=== PATIENT | female | born 1995 | race Caucasian/White ===

== ENCOUNTER 2021-01-21 07:25 | Inpatient (IN) ==
[2021-01-21] MEDS ORDERED: OXYTOCIN 30 UNITS/500 ML BAG IV PRN ×2 (08:05)
[2021-01-21 08:30] LABS: Hematocrit (blood only) 35.9 % (37-47); Hemoglobin 12.3 g/dL (12.0-16.0); Mean Corpuscular Hemoglobin 29.4 pg (25-34); Mean Corpuscular Hgb Conc 34.3 g/dL (32-36); Mean Corpuscular Volume 85.7 fL (80-100); Mean Platelet Volume 11.1 fL (7.4-10.4); Platelet Count 171 K/uL (130-400); RDW Coefficient of Variation 14.8 % (11.5-14.5); RDW Standard Deviation 46.3 fL (36.4-46.3); Red Blood Count 4.19 M/uL (4.2-5.4); White Blood Count 10.53 K/uL (4.8-10.8)
--- NOTE | 2021-01-21 08:36 | History & Physical Report ---
Date of Service January 21, 2021 Assessment & Plan (1) Proteinuria affecting : -urine dipstick (2) Rh negative status during : -give rhogam post-delivery (3) Supervision of normal first : -admit to l&d for iol, arom/pit -NPO except for ice chips -FHTs -Labs -IV fluids, pitocin -discussed epidural but pt unsure at this time -Rh negative, RI, GBS- -COVID-19 negative (4) : Admission and Anticipated Discharge Date Admission Date: January 21, 2021 History of Present Illness Primary Care Provider: Edinson Curiel 25 y/o female currently at 40.2 WGA with an MITCH 01/17/21 as determined by LMP who is here for IOL. - contractions; + movement; - fluid loss; - bloody show. ROS + headache Had regular appointments with OB. Labs: (Today) Blood type: AB negative Antibody screen: negative H.3 Hct: 35.9 WBC: 10.53 Plt: 171 Rubella: immune VDRL/RPR: nonreactive Gonorrhea: negative Chlamydia: negative HIV: negative HbSAg: negative GBS: negative Other screens: CF: declined SMA: declined Allergies Allergy/AdvReac Type Severity Reaction Status Date / Time No Known Allergies Allergy Unknown NONE Verified 01/21/21 07:41 Home Medications Medication Instructions Recorded Confirmed Type acetaminophen [Tylenol] 650 mg PO Q6HWA PRN 06/02/20 01/21/21 History prenat.vits,estiven,uly-pdcg-liapi 1 tab PO DAILY 06/02/20 01/21/21 History mometasone TOPICAL 06/10/20 01/19/21 History diphenhydramine-zinc acetate 2 1 applic TOPICAL BID 01/21/21 01/21/21 History %-0.1 % topical solution ferrous sulfate 325 mg (65 mg 325 mg PO DAILY 01/21/21 01/21/21 History iron) tablet (iron) Patient History Medical History No pertinent past medical history Psoriasis Varicella vaccination Surgical History No history of previous surgery Family History Denies family history of Ovarian cancer Breast cancer Colorectal cancer Social History Smoking Status: Never smoker Hx Alcohol Use: No Hx Substance Use: No Preferred Language: Portuguese Beliefs That Will Affect Care: None marital status: Single marital status details: Delvis Burgos (24) [phone] Current Living Situation: Parent and Significant Other Current Living Situation Comment: lives with parents, fiance, dogs current occupational status: employed current occupation: [employer] Feels Safe at Home: Yes Safety Concerns: Feels Safe At This Time Assistive Devices: None Review of Systems All systems reviewed & are unremarkable except as noted in HPI & below and Other (headache) as per Subjective / HPI as per Subjective / HPI as per Subjective / HPI as per Subjective / HPI as per Subjective / HPI as per Subjective / HPI Physical Exam Physical Exam: General: Alert, oriented. No acute distress. Cardiac: Regular rate and rhythm, no murmurs/rubs/gallops. Respiratory: Clear to auscultation bilaterally a/p, no wheezes/rales/rhonchi. No increased work of breathing. Symmetrical chest rise. No respiratory distress. Pelvic: Dilation 3 cm; Effacement 75%; Station -[address] Willard Lower Extremities: No lower extremity edema or swelling. No deep calf pain. Kelli's negative bilaterally Baseline: 150 bpm Variability:minimal Accelerations: present Decelerations: none Respiratory: normal respiratory effort, lungs clear to auscultation Cardiovascular: RRR, no murmur, no edema Musculoskeletal: no cyanosis or clubbing, extremities motor strength 5/5 Genitourinary: Manual OB Exam: + cervical dilation 3 cm, + cervical effacement (75%) and + station -2 Results & Data ([facility]) Vital Signs (Past 12 Hours) Vital Signs Temp Pulse Resp BP 01/21/21 07:40 37.0 C 20 01/21/21 07:36 114 H 144/85 H Supervising Physician Co-Signing Physician Notes Patient admitted for IOL due to postdatism. She had mild HTN on admission and 1+ proteinuria on dip, so she meets criteria for mild preeclampsia. However labs were done and resulted with normal platelets, normal cr, normal transaminases. Patient had also not complained of any PIH symptoms to my knowledge. Based on that, her plan remained for IOL and no new changes were made. However, on reviewing the resident's note, I see "+ headache" in his HPI. I called to discuss with the patient's RN, who shared that she did overhear the patient tell our resident about a mild MCKEON she'd experienced earlier this morning, but she also recalled hearing the patient tell him it had already resolved. The nurse then went to the patient's room to ask again about symptoms and confirm that there are no *current* symptoms of PIH. The patient stated that she did actually have a current headache, but it was mild and had improved compared to this morning at home. The nurse then called me with this new information. Unfortunately a headache would be an indicator of severe preeclampsia - but I'm hesitant to put this patient on magnesium when she has normal labs, no other symptoms (and this one is improved, not worsening), reflexes currently 1+ per nurse / not brisk and actually hard to elicit, and I anticipate improvement in her BP and likely her MCKEON when we give an epidural soon and she gets pain relief. I also don't want to ignore this new information. Plan will therefore be to provide a dose of oral acetaminophen now and see if patient gets relief of remaining MCKEON, while continuing to monitor BP. If symptoms persist despite tylenol or BP worsens, will utilize mag. Resident Activity Tracking Resident Involvement: Resident Care Provided Care Provided: OB Delivery
[2021-01-21 08:48] LABS: Albumin Level 2.5 gm/dl (3.4-5.0); BUN Creatinine Ratio 18.4 (10-20); Calcium 9.2 mg/dl (8.5-10.1); Creatinine Clr Calc Pharmacy 165.4 ml/min; Est GFR (African American) 148.9 ml/min; Est GFR (Non-African American) 128.5 ml/min; Potassium 3.6 mmol/L (3.5-5.1)
[2021-01-21 08:51] LABS: Albumin Globulin Ratio 0.6 (0.9-2); Bilirubin,Total 0.2 mg/dl (0.2-1); Globulin 4.3 gm/dl (2.5-4.0); Total Protein 6.8 gm/dl (6.4-8.2)
[2021-01-21] MEDS ORDERED: CALCIUM CARBONATE 500 MG CHEWABLE TAB PO PRN (09:26)
[2021-01-21] MEDS: LACTATED RINGER'S 1,000 ML IV PRN ×3 (09:26→17:33)
[2021-01-21] MEDS ORDERED: CALCIUM CARBONATE 500 MG CHEWABLE TAB ONE (09:29)
[2021-01-21] MEDS ORDERED: ACETAMINOPHEN 325 MG TAB PO PRN (12:15)
--- NOTE | 2021-01-21 16:01 | Labor Progress Brief Note ---
Date of Service January 21, 2021 Subjective Reason For Note: Routine Evaluation Current Pain Level(1-10): 1 Patient with pit at 17 and "not feeling any contractions" still. Also told RN she has a headache again, but when I arrive in the room with RN, patient states that she "has a headache, or maybe actually doesn't, she can't tell." We explained the importance of her being clear with us about her symptoms given the different management of mild vs severe preeclampsia, and she decided that she "does have one but it's very mild." After discovery that cervix remains unchanged, offered IUPC, discussing risks (scratching baby, damaging placenta, increased infection risk) and benefits (better data about strength of contractions to allow use of higher pitocin doses as may be required to reach adequate labor). Patient and FOB consider and decide to accept IUPC. She gets up to void, at her request, between initial exam and IUPC placement. Assessment & Plan (1) Mild preeclampsia: (2) Post term over 40 weeks: Plan: Continue IOL. Pit @ 17 now, titrate to MVU 200-250. Epidural on request. Continue to monitor BP, MCKEON and DTR's on an ongoing basis. Admission and Anticipated Discharge Date Admission Date: January 21, 2021 Physical Exam Constitutional: WD/WN, vitals as above Eyes: PERRL, conjunctivae normal, anicteric sclerae ENMT: external ear and nose normal, oropharynx normal Neck: supple Respiratory: normal respiratory effort and able to speak in complete sentences; no respiratory distress Cardiovascular: Rate/Rhythm: regular rate and regular rhythm Gastrointestinal (Abdomen): Gravid / AGA, nontender Musculoskeletal: no cyanosis or clubbing, extremities motor strength 5/5 Skin: no rashes, warm and dry Neurologic: patellar DTR's 2+ bilat, sensation intact (Would describe as 1 to 2+, certainly not brisk.) Psychiatric: A+Ox3, euthymic affect Genitourinary: OB Exam Abdomen: + vertex, + estimated weight (7) and + regular contractions (Q3) Manual OB Exam: + cervical dilation 4 cm, + cervical effacement 90%, + station -2 and + amniotic fluid meconium OB Exam Monitor Tracing: + external FHT monitor used, + external uterine monitor used and + category I IUPC placed. First IUPC was unable to be placed as it was discovered that the catheter could not be slid forward; it was "stuck" in place inside the firm plastic guide sheath. A second catheter was obtained and introduced easily in an anterolateral location. Lymphatic: no cervical or axillary lymphadenopathy Results & Data ([facility]) Vital Signs (Past 12 Hours) Vital Signs Temp Pulse Resp BP 01/21/21 15:25 96 H 146/86 H 01/21/21 15:01 98 H 139/88 01/21/21 15:00 98.1 F 01/21/21 14:25 100 H 133/91 01/21/21 13:25 107 H 139/86 01/21/21 13:06 98.2 F 01/21/21 12:25 102 H 131/86 01/21/21 11:24 121 H 152/83 H 01/21/21 11:00 98.4 F 01/21/21 10:24 106 H 146/89 H 01/21/21 09:24 106 H 141/94 H 01/21/21 07:40 98.6 F 01/21/21 07:36 114 H 144/85 H Coding Level of Care Code None Diagnoses Mild preeclampsia O14.00 Post term over 40 weeks O48.0
[2021-01-21] MEDS ORDERED: SODIUM CHLORIDE 0.9% INJ 10 ML VIAL ONE ×2 (17:43→19:01)
[2021-01-21] MEDS ORDERED: fentaNYL citrate 100 MCG/2 ML VIAL ONE (17:43)
[2021-01-21] MEDS ORDERED: BUPIVACAINE 0.25% 30 ML VIAL ONE ×2 (17:43→19:01)
[2021-01-21] MEDS ORDERED: ePHEDrine sulfate 50 MG/ML AMP ONE (17:43)
[2021-01-21] MEDS ORDERED: fentaNYL 2MCG/ML ROPIVACAINE 1.25MG/ML 100 ML BAG EPI ONE (17:44)
--- NOTE | 2021-01-21 18:04 | Anesthesiology Consultation ---
Date of Service January 21, 2021 Assessment & Plan (1) Encounter for pre-operative examination: Chart Review Chart Review: Acceptable Risk for Surgery and Patient NOT seen in Pre Admission Testing Consults Requested none ASA ASA2 Proposed Anesthesia Anesthesia Type: Labor Epidural Risk / Benefits Reviewed With: PT / POA / Parent / Guardian, Accepts Plan and Informed Consent Obtained History Height/Weight Height: 5 ft 6 in Weight: 90.718 kg Allergies Allergy/AdvReac Type Severity Reaction Status Date / Time No Known Allergies Allergy Unknown NONE Verified 01/21/21 07:41 Medications Home Medications Medication Instructions Recorded Confirmed Last Taken acetaminophen [Tylenol] 650 mg PO Q6HWA PRN 06/02/20 01/21/21 Unknown prenat.vits,estiven,cxm-rosa-vmypb 1 tab PO DAILY 06/02/20 01/21/21 01/20/21 21:00 mometasone TOPICAL 06/10/20 01/19/21 Unknown diphenhydramine-zinc acetate 2 1 applic TOPICAL BID 01/21/21 01/21/21 01/21/21 05:00 %-0.1 % topical solution ferrous sulfate 325 mg (65 mg 325 mg PO DAILY 01/21/21 01/21/21 01/20/21 21:00 iron) tablet (iron) Active Medications Generic Name Dose Route Start Last Admin Trade Name Freq PRN Reason Stop Dose Admin Acetaminophen 650 mg 01/21/21 12:15 01/21/21 12:24 Acetaminophen 325 Mg Tab PO 02/20/21 12:14 650 mg Q4H PRN Administration Mild Pain Oxytocin 30 units in 500 mls @ 17 mls/hr 01/21/21 08:05 01/21/21 15:01 Pitocin IV 01/23/21 08:04 1.02 units/hr .Q24H PRN 17 mls/hr Labor Induction/Augmentation Titration Protocol 1.02 UNITS/HR Lactated Ringer's 1,000 mls @ 125 mls/hr 01/21/21 08:05 01/21/21 17:33 Lr IV 01/23/21 08:04 125 mls/hr .Q8H PRN Administration L&D Protocol Protocol NPO Date Last Intake of Fluids: 01/21/21 Time Last Intake of Fluids: 17:58 Date Last Intake of Solids: 07/14/21 Time Last Intake of Solids: 08:00 Past Medical History Medical History No pertinent past medical history Psoriasis Varicella vaccination Exercise / Class Metabolic Activity II 4-5 Yardwork/Stairs/Walk up hill Past Family History Family History Denies family history of Ovarian cancer Breast cancer Colorectal cancer Past Surgical History Surgical History No history of previous surgery Past Anesthesia History No Hx of Anesthesia Complications History of PONV No Hx of Motion Sickness Social History Smoking Status: Never smoker Hx Alcohol Use: No Hx Substance Use: No substance use type: does not use Review of Systems Negative for chest pain or shortness of breath, Patient denies active symptoms of GERD, Patient denies history of abnormal bleeding or bleeding disorder. Patient denies active use of anticoagulants other than low dose aspirin, Patient denies numbness, tingling or weakness in lower extremities. Physical Exam Vital Signs Last Vital Signs Temp 36.9 C 01/21/21 17:00 Pulse 107 H 01/21/21 17:55 Resp 18 01/21/21 15:00 BP 131/75 01/21/21 17:24 Pulse Ox 97 01/21/21 17:55 Constitutional not obese (gravid ) ENMT Mouth: no TMJ abnormality and oral opening not small Thyromental Distance: < 3.5 Finger Breadths Mallampati Class: II Neck normal visual inspection; neck extension not limited Respiratory normal respiratory effort Cardiovascular Rate/Rhythm: regular rate and regular rhythm Neurologic moves all extremities Motor/Sensory: no sensory deficit Psychiatric Orientation: alert and oriented x 3 Testing Laboratory Results 01/21/21 08:13 01/21/21 08:13
[2021-01-21] MEDS ORDERED: NALOXONE HCL 0.4 MG/1 ML VIAL/CARP IV PRN (19:54)
[2021-01-21] MEDS ORDERED: diphenhydrAMINE 50 MG/ML VIAL IV PRN (19:54)
[2021-01-21] MEDS ORDERED: NALOXONE HCL 1 MG in SODIUM CHLORIDE 0.9% 1000ML 1,000 ML IV PRN (19:54)
[2021-01-21] MEDS ORDERED: ePHEDrine sulfate 50 MG/ML AMP IV PRN (19:54)
[2021-01-21] MEDS ORDERED: fentaNYL 2MCG/ML ROPIVACAINE 1.25MG/ML 100 ML BAG EPI PRN (19:54)
[2021-01-21] MEDS ORDERED: NALBUPHINE HCL INJ 10 MG/ML AMP IV PRN (19:54)
--- NOTE | 2021-01-21 20:14 | Labor Progress Brief Note ---
Date of Service January 21, 2021 Subjective Comfortable after placement of epidural ultimately successful but did require a lengthy process with attempts by two anesthesiologists. Assessment & Plan (1) Post term over 40 weeks: (2) Mild preeclampsia: Plan: Continue titrating pitocin to MVU 200-250. BP ok, no c/o MCKEON currently. Admission and Anticipated Discharge Date Admission Date: January 21, 2021 Physical Exam Genitourinary: Pit @ 17 still MVU <200, ctx Q2-4 irregular Cvx /-1 FHT Cat 1 Results & Data ([facility]) Vital Signs (Past 12 Hours) Vital Signs Temp Pulse Resp BP Pulse Ox 01/21/21 20:11 115 H 01/21/21 20:06 129 H 100 01/21/21 20:05 122 H 124/72 01/21/21 20:03 126 H 118/75 01/21/21 20:01 130 H 113/70 100 01/21/21 19:59 134 H 104/64 01/21/21 19:57 125 H 103/59 L 01/21/21 19:56 129 H 100 01/21/21 19:55 125 H 127/71 01/21/21 19:53 129 H 105/64 01/21/21 19:51 123 H 104/55 L 01/21/21 19:50 126 H 98 01/21/21 19:49 134 H 103/57 L 01/21/21 19:47 130 H 128/60 01/21/21 19:45 132 H 125/61 99 01/21/21 19:43 130 H 127/73 01/21/21 19:41 126 H 134/69 01/21/21 19:40 126 H 97 01/21/21 19:39 114 H 136/87 01/21/21 19:37 108 H 137/95 01/21/21 19:35 97 H 97 01/21/21 19:30 113 H 97 01/21/21 19:25 105 H 134/92 97 01/21/21 19:20 109 H 100 01/21/21 19:15 102 H 96 01/21/21 19:10 108 H 100 01/21/21 19:05 97.7 F 116 H 18 95 01/21/21 19:00 113 H 95 01/21/21 18:55 96 H 96 01/21/21 18:50 83 97 01/21/21 18:45 97 H 97 01/21/21 18:40 106 H 97 01/21/21 18:35 114 H 96 01/21/21 18:30 111 H 97 01/21/21 18:26 114 H 134/90 01/21/21 18:25 113 H 98 01/21/21 18:20 111 H 97 01/21/21 18:15 115 H 97 01/21/21 18:10 113 H 97 01/21/21 18:05 115 H 97 01/21/21 18:00 111 H 97 01/21/21 17:55 107 H 97 01/21/21 17:50 105 H 97 01/21/21 17:45 97 H 97 01/21/21 17:40 115 H 97 01/21/21 17:24 100 H 131/75 01/21/21 17:00 98.4 F 01/21/21 16:24 100 H 135/92 01/21/21 15:25 96 H 146/86 H 01/21/21 15:01 98 H 139/88 01/21/21 15:00 98.1 F 18 01/21/21 14:25 100 H 133/91 01/21/21 13:25 107 H 139/86 01/21/21 13:06 98.2 F 18 01/21/21 12:25 102 H 131/86 01/21/21 11:24 121 H 152/83 H 01/21/21 11:00 98.4 F 18 01/21/21 10:24 106 H 146/89 H 01/21/21 09:24 106 H 141/94 H Coding Level of Care Code None Diagnoses Post term over 40 weeks O48.0 Mild preeclampsia O14.00
--- NOTE | 2021-01-21 22:59 | Procedure Note ---
Procedure Note Date of Service January 21, 2021 Note Received call at 1750 from OB requesting labor epidural placement. Patient was interviewed and examined. Anesthesia consent was discussed and signed. The patient was sitting for epidural placement and back was cleaned with DuraPrep. Time out was performed. Initial attempt was done at L3/L4 with easy location of SHE to saline, but catheter would not thread despite multiple attempts. Decision made to withdraw the needle and attempt placement at another location. After this, multiple attempts were made (about 6 total) without again identifying the epidural space. At no time was there any evidence of a wet tap and the patient tolerated all attempts well. A total of 5cc of 1%lidocaine was used and about 4cc of 0.25% bupivacaine to assist with topicalization during attempts. After multiple attempts, I requested OB contact the back up anesthesiologist so that Dr. Meyers could continue with epidural placement. I explained to the patient that I was unable to place the epidural as requested and that another anesthesiologist would be arriving to assist. The pt understood and was willing to await Dr. Meyers's arrival. The patient was reassured and had no questions about my attempts. Please see Dr. Meyers's epidural record for documentation of his epidural placement. Audrey Reis MD, PhD Anesthesiologist Coding
--- NOTE | 2021-01-22 00:41 | Labor Progress Brief Note ---
Date of Service January 22, 2021 Subjective Comfortable with epidural, however now feeling more pelvic pressure. Assessment & Plan (1) Mild preeclampsia: Plan: BP improved and no PIH symptoms since epidural placed. (2) Post term over 40 weeks: Plan: IOL continues. Admission and Anticipated Discharge Date Admission Date: January 21, 2021 Physical Exam Genitourinary: 9/100/0 FHT Cat 1 [place] Q2 ?subtle early decels Cat 1 Results & Data ([place]) Vital Signs (Past 12 Hours) Vital Signs Temp Pulse Resp BP Pulse Ox 01/22/21 00:36 120 H 131/72 95 01/22/21 00:31 131 H 98 01/22/21 00:26 130 H 97 01/22/21 00:21 128 H 133/70 95 01/22/21 00:16 128 H 97 01/22/21 00:11 131 H 96 01/22/21 00:06 132 H 127/78 98 01/22/21 00:01 122 H 97 01/21/21 23:56 123 H 96 01/21/21 23:51 127 H 97 01/21/21 23:50 125 H 123/70 01/21/21 23:46 122 H 95 01/21/21 23:41 130 H 95 01/21/21 23:36 124 H 136/68 96 01/21/21 23:31 131 H 95 01/21/21 23:26 129 H 95 01/21/21 23:21 133 H 130/71 95 01/21/21 23:16 127 H 96 01/21/21 23:11 126 H 97 01/21/21 23:06 134 H 97 01/21/21 23:05 134 H 124/58 L 01/21/21 23:01 142 H 97 01/21/21 23:00 98.4 F 18 01/21/21 22:56 144 H 97 01/21/21 22:51 152 H 98 01/21/21 22:50 157 H 125/57 L 01/21/21 22:46 144 H 98 01/21/21 22:41 130 H 97 01/21/21 22:36 127 H 97 01/21/21 22:35 130 H 122/56 L 01/21/21 22:31 121 H 97 01/21/21 22:30 18 01/21/21 22:26 130 H 97 01/21/21 22:21 130 H 133/80 96 01/21/21 22:16 125 H 97 01/21/21 22:11 125 H 97 01/21/21 22:06 125 H 134/80 96 01/21/21 22:01 132 H 97 01/21/21 22:00 18 01/21/21 21:56 132 H 97 01/21/21 21:51 121 H 98 01/21/21 21:50 131 H 139/87 01/21/21 21:46 131 H 98 01/21/21 21:41 124 H 98 01/21/21 21:36 128 H 128/81 98 01/21/21 21:31 125 H 99 01/21/21 21:26 136 H 97 01/21/21 21:21 120 H 134/79 97 01/21/21 21:16 118 H 96 01/21/21 21:15 98.4 F 01/21/21 21:11 115 H 96 01/21/21 21:06 122 H 97 01/21/21 21:05 125 H 119/75 01/21/21 21:01 126 H 97 01/21/21 21:00 18 01/21/21 20:56 121 H 96 01/21/21 20:51 112 H 96 01/21/21 20:50 122 H 119/69 01/21/21 20:46 117 H 96 01/21/21 20:45 18 01/21/21 20:41 115 H 96 01/21/21 20:36 115 H 98 01/21/21 20:35 121 H 118/75 01/21/21 20:31 121 H 97 01/21/21 20:30 18 01/21/21 20:26 116 H 100 01/21/21 20:22 123 H 124/74 01/21/21 20:21 120 H 99 01/21/21 20:16 112 H 99 01/21/21 20:15 18 01/21/21 20:11 115 H 100 01/21/21 20:06 129 H 100 01/21/21 20:05 122 H 124/72 01/21/21 20:03 126 H 118/75 01/21/21 20:01 130 H 113/70 100 01/21/21 20:00 18 01/21/21 19:59 134 H 104/64 01/21/21 19:57 125 H 103/59 L 01/21/21 19:56 129 H 100 01/21/21 19:55 125 H 127/71 01/21/21 19:53 129 H 105/64 01/21/21 19:51 123 H 104/55 L 01/21/21 19:50 126 H 98 01/21/21 19:49 134 H 103/57 L 01/21/21 19:47 130 H 128/60 01/21/21 19:45 132 H 125/61 99 01/21/21 19:43 130 H 127/73 01/21/21 19:41 126 H 134/69 01/21/21 19:40 126 H 97 01/21/21 19:39 114 H 136/87 01/21/21 19:37 108 H 137/95 01/21/21 19:35 97 H 97 01/21/21 19:30 113 H 97 01/21/21 19:25 105 H 134/92 97 01/21/21 19:20 109 H 100 01/21/21 19:15 102 H 96 01/21/21 19:10 108 H 100 01/21/21 19:05 97.7 F 116 H 18 95 01/21/21 19:00 113 H 95 01/21/21 18:55 96 H 96 01/21/21 18:50 83 97 01/21/21 18:45 97 H 97 01/21/21 18:40 106 H 97 01/21/21 18:35 114 H 96 01/21/21 18:30 111 H 97 01/21/21 18:26 114 H 134/90 01/21/21 18:25 113 H 98 01/21/21 18:20 111 H 97 01/21/21 18:15 115 H 97 01/21/21 18:10 113 H 97 01/21/21 18:05 115 H 97 01/21/21 18:00 111 H 97 01/21/21 17:55 107 H 97 01/21/21 17:50 105 H 97 01/21/21 17:45 97 H 97 01/21/21 17:40 115 H 97 01/21/21 17:24 100 H 131/75 01/21/21 17:00 98.4 F 01/21/21 16:24 100 H 135/92 01/21/21 15:25 96 H 146/86 H 01/21/21 15:01 98 H 139/88 01/21/21 15:00 98.1 F 18 01/21/21 14:25 100 H 133/91 01/21/21 13:25 107 H 139/86 01/21/21 13:06 98.2 F 18 Coding Level of Care Code None Diagnoses Mild preeclampsia O14.00 Post term over 40 weeks O48.0
[2021-01-22] MEDS: LACTATED RINGER'S 1,000 ML IV PRN (01:24)
--- NOTE | 2021-01-22 04:23 | Labor Progress Brief Note ---
Date of Service January 22, 2021 Subjective Patient has been pushing with RN for a little over an hour. I'm advised she started at +1 station and reached at least +2 station now with pushes, definite progress has been made per RN. Patient has epidural and is comfortable, in good spirits when I arrive in room. Assessment & Plan (1) Mild preeclampsia: (2) Post term over 40 weeks: Plan: Continue second stage. Admission and Anticipated Discharge Date Admission Date: January 21, 2021 Physical Exam Physical Exam: Fetus likely ROP, and is displaceable upwards with flow of amniotic fluid, but does come to +2 with maternal pushing efforts. FHT Cat 1 / approp for 2nd stage. [place] Q2m No significant molding or caput at this time. No significant labial edema. IUPC remains in place. Results & Data ([facility]) Vital Signs (Past 12 Hours) Vital Signs Temp Pulse Resp BP Pulse Ox 01/22/21 04:13 134 H 98 01/22/21 04:08 134 H 97 01/22/21 04:05 130 H 128/60 01/22/21 04:04 146 H 89 L 01/22/21 04:03 137 H 90 01/22/21 03:58 127 H 95 01/22/21 03:51 130 H 130/58 L 01/22/21 03:41 139 H 85 L 01/22/21 03:36 132 H 128/61 96 01/22/21 03:35 127 H 80 L 01/22/21 03:31 125 H 96 01/22/21 03:30 136 H 79 L 01/22/21 03:26 128 H 96 01/22/21 03:21 127 H 122/59 L 96 01/22/21 03:16 129 H 96 01/22/21 03:11 135 H 98 01/22/21 03:06 125 H 131/60 97 01/22/21 03:01 128 H 96 01/22/21 02:56 129 H 96 01/22/21 02:51 135 H 96 01/22/21 02:50 133 H 130/63 01/22/21 02:46 130 H 99 01/22/21 02:41 136 H 97 01/22/21 02:36 134 H 133/82 97 01/22/21 02:31 132 H 98 01/22/21 02:26 138 H 96 01/22/21 02:21 139 H 132/76 98 01/22/21 02:16 132 H 96 01/22/21 02:14 130 H 88 L 01/22/21 02:11 123 H 96 01/22/21 02:06 126 H 129/72 98 01/22/21 02:01 125 H 95 01/22/21 01:56 125 H 97 01/22/21 01:51 125 H 97 01/22/21 01:50 130 H 133/63 01/22/21 01:46 131 H 97 01/22/21 01:41 129 H 96 01/22/21 01:36 136 H 97 01/22/21 01:35 127 H 127/65 01/22/21 01:31 130 H 95 01/22/21 01:26 133 H 97 01/22/21 01:21 134 H 140/76 98 01/22/21 01:20 98.4 F 01/22/21 01:16 134 H 98 01/22/21 01:11 133 H 97 01/22/21 01:06 124 H 96 01/22/21 01:05 120 H 132/71 01/22/21 01:01 118 H 95 01/22/21 01:00 98.2 F 18 01/22/21 00:56 126 H 97 01/22/21 00:51 122 H 132/68 97 01/22/21 00:46 121 H 95 01/22/21 00:41 125 H 96 01/22/21 00:36 120 H 131/72 95 01/22/21 00:31 131 H 98 01/22/21 00:26 130 H 97 01/22/21 00:21 128 H 133/70 95 01/22/21 00:16 128 H 97 01/22/21 00:11 131 H 96 01/22/21 00:06 132 H 127/78 98 01/22/21 00:01 122 H 97 01/21/21 23:56 123 H 96 01/21/21 23:51 127 H 97 01/21/21 23:50 125 H 123/70 01/21/21 23:46 122 H 95 01/21/21 23:41 130 H 95 01/21/21 23:36 124 H 136/68 96 01/21/21 23:31 131 H 95 01/21/21 23:26 129 H 95 01/21/21 23:21 133 H 130/71 95 01/21/21 23:16 127 H 96 01/21/21 23:11 126 H 97 01/21/21 23:06 134 H 97 01/21/21 23:05 134 H 124/58 L 01/21/21 23:01 142 H 97 01/21/21 23:00 98.4 F 18 01/21/21 22:56 144 H 97 01/21/21 22:51 152 H 98 01/21/21 22:50 157 H 125/57 L 01/21/21 22:46 144 H 98 01/21/21 22:41 130 H 97 01/21/21 22:36 127 H 97 01/21/21 22:35 130 H 122/56 L 01/21/21 22:31 121 H 97 01/21/21 22:30 18 01/21/21 22:26 130 H 97 01/21/21 22:21 130 H 133/80 96 01/21/21 22:16 125 H 97 01/21/21 22:11 125 H 97 01/21/21 22:06 125 H 134/80 96 01/21/21 22:01 132 H 97 01/21/21 22:00 18 01/21/21 21:56 132 H 97 01/21/21 21:51 121 H 98 01/21/21 21:50 131 H 139/87 01/21/21 21:46 131 H 98 01/21/21 21:41 124 H 98 01/21/21 21:36 128 H 128/81 98 01/21/21 21:31 125 H 99 01/21/21 21:26 136 H 97 01/21/21 21:21 120 H 134/79 97 01/21/21 21:16 118 H 96 01/21/21 21:15 98.4 F 01/21/21 21:11 115 H 96 01/21/21 21:06 122 H 97 01/21/21 21:05 125 H 119/75 01/21/21 21:01 126 H 97 01/21/21 21:00 18 01/21/21 20:56 121 H 96 01/21/21 20:51 112 H 96 01/21/21 20:50 122 H 119/69 01/21/21 20:46 117 H 96 01/21/21 20:45 18 01/21/21 20:41 115 H 96 01/21/21 20:36 115 H 98 01/21/21 20:35 121 H 118/75 01/21/21 20:31 121 H 97 01/21/21 20:30 18 01/21/21 20:26 116 H 100 01/21/21 20:22 123 H 124/74 01/21/21 20:21 120 H 99 01/21/21 20:16 112 H 99 01/21/21 20:15 18 01/21/21 20:11 115 H 100 01/21/21 20:06 129 H 100 01/21/21 20:05 122 H 124/72 01/21/21 20:03 126 H 118/75 01/21/21 20:01 130 H 113/70 100 01/21/21 20:00 18 01/21/21 19:59 134 H 104/64 01/21/21 19:57 125 H 103/59 L 01/21/21 19:56 129 H 100 01/21/21 19:55 125 H 127/71 01/21/21 19:53 129 H 105/64 01/21/21 19:51 123 H 104/55 L 01/21/21 19:50 126 H 98 01/21/21 19:49 134 H 103/57 L 01/21/21 19:47 130 H 128/60 01/21/21 19:45 132 H 125/61 99 01/21/21 19:43 130 H 127/73 01/21/21 19:41 126 H 134/69 01/21/21 19:40 126 H 97 01/21/21 19:39 114 H 136/87 01/21/21 19:37 108 H 137/95 01/21/21 19:35 97 H 97 01/21/21 19:30 113 H 97 01/21/21 19:25 105 H 134/92 97 01/21/21 19:20 109 H 100 01/21/21 19:15 102 H 96 01/21/21 19:10 108 H 100 01/21/21 19:05 97.7 F 116 H 18 95 01/21/21 19:00 113 H 95 01/21/21 18:55 96 H 96 01/21/21 18:50 83 97 01/21/21 18:45 97 H 97 01/21/21 18:40 106 H 97 01/21/21 18:35 114 H 96 01/21/21 18:30 111 H 97 01/21/21 18:26 114 H 134/90 01/21/21 18:25 113 H 98 01/21/21 18:20 111 H 97 01/21/21 18:15 115 H 97 01/21/21 18:10 113 H 97 01/21/21 18:05 115 H 97 01/21/21 18:00 111 H 97 01/21/21 17:55 107 H 97 01/21/21 17:50 105 H 97 01/21/21 17:45 97 H 97 01/21/21 17:40 115 H 97 01/21/21 17:24 100 H 131/75 01/21/21 17:00 98.4 F 01/21/21 16:24 100 H 135/92 Coding Level of Care Code None Diagnoses Mild preeclampsia O14.00 Post term over 40 weeks O48.0
--- NOTE | 2021-01-22 06:12 | Labor Progress Brief Note ---
Date of Service January 22, 2021 Subjective Patient comfortable with epidural, still pushing effectively and not yet exhausted. Assessment & Plan (1) Post term over 40 weeks: Plan: Patient counseled on pushing x3 hours now, has brought baby near to but still displaces upwards, and I cannot predict with certainty whether this is primarily due to position vs CPD. I offered options ranging from continued pushing, Vac, Forceps, CSec. Risks and benefits of all discussed in lengthy detail with MAXIM Givens at bedside, all questions answered of patient and FOB. Included but not limited to bruising, lacerations, scalp hematoma, failure to deliver and needing Csec, injury to head/neck/nerves, shoulder dystocia after head delivery, injury to mom including risk of higher grade lacerations, and surgical risks of . She was given some time to consider her options. (2) Mild preeclampsia: Admission and Anticipated Discharge Date Admission Date: January 21, 2021 Physical Exam Physical Exam: scalp visible ~1cm wide between labia with pushing, and still not much labial edema, nor caput/molding. Now is LOP for sure, as I can displace upwards between contractions and palpate over the forehead to the facial structures anteriorly. Possibly slight extension of the head as well, but not a brow presentation. FHT Cat 1 / approp for second stage, Contractions Q2-4 Results & Data ([facility]) Vital Signs (Past 12 Hours) Vital Signs Temp Pulse Resp BP Pulse Ox 01/22/21 06:05 144 H 128/61 01/22/21 06:04 140 H 95 01/22/21 05:59 135 H 95 01/22/21 05:55 129 H 88 L 01/22/21 05:54 120 H 96 01/22/21 05:51 126 H 132/60 01/22/21 05:49 134 H 93 01/22/21 05:44 151 H 97 01/22/21 05:39 135 H 83 L 01/22/21 05:35 123 H 134/63 01/22/21 05:34 130 H 94 01/22/21 05:29 127 H 95 01/22/21 05:24 131 H 97 01/22/21 05:21 127 H 141/62 H 01/22/21 05:18 133 H 96 01/22/21 05:14 138 H 84 L 01/22/21 05:13 132 H 95 01/22/21 05:09 151 H 87 L 01/22/21 05:08 134 H 96 01/22/21 05:05 131 H 122/57 L 01/22/21 05:03 127 H 96 01/22/21 04:58 142 H 96 01/22/21 04:53 135 H 97 01/22/21 04:50 148 H 123/76 01/22/21 04:48 158 H 97 01/22/21 04:43 125 H 97 01/22/21 04:39 139 H 85 L 01/22/21 04:38 130 H 96 01/22/21 04:35 121 H 131/63 01/22/21 04:34 146 H 89 L 01/22/21 04:33 126 H 96 01/22/21 04:29 138 H 84 L 01/22/21 04:28 133 H 95 01/22/21 04:23 129 H 96 01/22/21 04:18 127 H 96 01/22/21 04:13 134 H 98 01/22/21 04:08 134 H 97 01/22/21 04:05 130 H 128/60 01/22/21 04:04 146 H 89 L 01/22/21 04:03 137 H 90 01/22/21 04:00 99.0 F 01/22/21 03:58 127 H 95 01/22/21 03:51 130 H 130/58 L 01/22/21 03:41 139 H 85 L 01/22/21 03:36 132 H 128/61 96 01/22/21 03:35 127 H 80 L 01/22/21 03:31 125 H 96 01/22/21 03:30 136 H 79 L 01/22/21 03:26 128 H 96 01/22/21 03:21 127 H 122/59 L 96 01/22/21 03:16 129 H 96 01/22/21 03:11 135 H 98 01/22/21 03:06 125 H 131/60 97 01/22/21 03:01 128 H 96 01/22/21 02:56 129 H 96 01/22/21 02:51 135 H 96 01/22/21 02:50 133 H 130/63 01/22/21 02:46 130 H 99 01/22/21 02:41 136 H 97 01/22/21 02:36 134 H 133/82 97 01/22/21 02:31 132 H 98 01/22/21 02:26 138 H 96 01/22/21 02:21 139 H 132/76 98 01/22/21 02:16 132 H 96 01/22/21 02:14 130 H 88 L 01/22/21 02:11 123 H 96 01/22/21 02:06 126 H 129/72 98 01/22/21 02:01 125 H 95 01/22/21 01:56 125 H 97 01/22/21 01:51 125 H 97 01/22/21 01:50 130 H 133/63 01/22/21 01:46 131 H 97 01/22/21 01:41 129 H 96 01/22/21 01:36 136 H 97 01/22/21 01:35 127 H 127/65 01/22/21 01:31 130 H 95 01/22/21 01:26 133 H 97 01/22/21 01:21 134 H 140/76 98 01/22/21 01:20 98.4 F 01/22/21 01:16 134 H 98 01/22/21 01:11 133 H 97 01/22/21 01:06 124 H 96 01/22/21 01:05 120 H 132/71 01/22/21 01:01 118 H 95 01/22/21 01:00 98.2 F 18 01/22/21 00:56 126 H 97 01/22/21 00:51 122 H 132/68 97 01/22/21 00:46 121 H 95 01/22/21 00:41 125 H 96 01/22/21 00:36 120 H 131/72 95 01/22/21 00:31 131 H 98 01/22/21 00:26 130 H 97 01/22/21 00:21 128 H 133/70 95 01/22/21 00:16 128 H 97 01/22/21 00:11 131 H 96 01/22/21 00:06 132 H 127/78 98 01/22/21 00:01 122 H 97 01/21/21 23:56 123 H 96 01/21/21 23:51 127 H 97 01/21/21 23:50 125 H 123/70 07/14/21 23:46 122 H 95 01/21/21 23:41 130 H 95 01/21/21 23:36 124 H 136/68 96 01/21/21 23:31 131 H 95 01/21/21 23:26 129 H 95 01/21/21 23:21 133 H 130/71 95 01/21/21 23:16 127 H 96 01/21/21 23:11 126 H 97 01/21/21 23:06 134 H 97 01/21/21 23:05 134 H 124/58 L 01/21/21 23:01 142 H 97 01/21/21 23:00 98.4 F 18 01/21/21 22:56 144 H 97 01/21/21 22:51 152 H 98 01/21/21 22:50 157 H 125/57 L 01/21/21 22:46 144 H 98 01/21/21 22:41 130 H 97 01/21/21 22:36 127 H 97 01/21/21 22:35 130 H 122/56 L 01/21/21 22:31 121 H 97 01/21/21 22:30 18 01/21/21 22:26 130 H 97 01/21/21 22:21 130 H 133/80 96 01/21/21 22:16 125 H 97 01/21/21 22:11 125 H 97 01/21/21 22:06 125 H 134/80 96 01/21/21 22:01 132 H 97 01/21/21 22:00 18 01/21/21 21:56 132 H 97 01/21/21 21:51 121 H 98 01/21/21 21:50 131 H 139/87 01/21/21 21:46 131 H 98 01/21/21 21:41 124 H 98 01/21/21 21:36 128 H 128/81 98 01/21/21 21:31 125 H 99 01/21/21 21:26 136 H 97 01/21/21 21:21 120 H 134/79 97 01/21/21 21:16 118 H 96 01/21/21 21:15 98.4 F 01/21/21 21:11 115 H 96 01/21/21 21:06 122 H 97 01/21/21 21:05 125 H 119/75 01/21/21 21:01 126 H 97 01/21/21 21:00 18 01/21/21 20:56 121 H 96 01/21/21 20:51 112 H 96 01/21/21 20:50 122 H 119/69 01/21/21 20:46 117 H 96 01/21/21 20:45 18 01/21/21 20:41 115 H 96 01/21/21 20:36 115 H 98 01/21/21 20:35 121 H 118/75 01/21/21 20:31 121 H 97 01/21/21 20:30 18 01/21/21 20:26 116 H 100 01/21/21 20:22 123 H 124/74 01/21/21 20:21 120 H 99 01/21/21 20:16 112 H 99 01/21/21 20:15 18 01/21/21 20:11 115 H 100 01/21/21 20:06 129 H 100 01/21/21 20:05 122 H 124/72 01/21/21 20:03 126 H 118/75 01/21/21 20:01 130 H 113/70 100 01/21/21 20:00 18 01/21/21 19:59 134 H 104/64 01/21/21 19:57 125 H 103/59 L 01/21/21 19:56 129 H 100 01/21/21 19:55 125 H 127/71 01/21/21 19:53 129 H 105/64 01/21/21 19:51 123 H 104/55 L 01/21/21 19:50 126 H 98 01/21/21 19:49 134 H 103/57 L 01/21/21 19:47 130 H 128/60 01/21/21 19:45 132 H 125/61 99 01/21/21 19:43 130 H 127/73 01/21/21 19:41 126 H 134/69 01/21/21 19:40 126 H 97 01/21/21 19:39 114 H 136/87 01/21/21 19:37 108 H 137/95 01/21/21 19:35 97 H 97 01/21/21 19:30 113 H 97 01/21/21 19:25 105 H 134/92 97 01/21/21 19:20 109 H 100 01/21/21 19:15 102 H 96 07/14/21 19:10 108 H 100 01/21/21 19:05 97.7 F 116 H 18 95 01/21/21 19:00 113 H 95 01/21/21 18:55 96 H 96 01/21/21 18:50 83 97 01/21/21 18:45 97 H 97 01/21/21 18:40 106 H 97 01/21/21 18:35 114 H 96 01/21/21 18:30 111 H 97 01/21/21 18:26 114 H 134/90 01/21/21 18:25 113 H 98 01/21/21 18:20 111 H 97 01/21/21 18:15 115 H 97 01/21/21 18:10 113 H 97 Coding Level of Care Code None Diagnoses Post term over 40 weeks O48.0 Mild preeclampsia O14.00
[2021-01-22] MEDS ORDERED: ceFAZolin 2000MG 2,000 MG/15 ML SYR IV STA (06:24)
[2021-01-22] MEDS ORDERED: CITRIC ACID/SODIUM CITRATE 15 ML UDC PO STA (06:24)
[2021-01-22] MEDS ORDERED: LACTATED RINGER'S 1,000 ML IV SCH ×2 (06:30→08:56)
--- NOTE | 2021-01-22 06:43 | Communication Note ---
Date of Service: January 22, 2021 Awaiting availability of required staff in order to take patient to section. None of the Labor and Delivery surgical techs will be available as th ey have called off for today and shift change is now occurring. Thus far no alternative trained surgical nurse practitioner has yet been identified, calls to ER and other sources currently in progress by our relief charge nurse. judicial assistant RN has been identified and is available. Calling second MD will not resolve this delay. At this time [place] Q4m and FHT Cat 1.
[2021-01-22] MEDS ORDERED: PHENYLEPHRINE 100MCG/ML 5ML SYR ONE (06:47)
[2021-01-22] MEDS ORDERED: ONDANSETRON INJ 2 MG/ML 2 ML VIAL ONE (06:47)
[2021-01-22] MEDS ORDERED: OXYTOCIN 10 UNITS/ML VIAL ONE (06:47)
[2021-01-22] MEDS ORDERED: MoRPHine SULFATE PF 1 MG/ML 10 ML AMP/VIAL ONE (06:48)
[2021-01-22] MEDS ORDERED: LIDOCAINE 2%/EPINEPHRINE 1:200,000 20 ML SDV ONE (06:48)
[2021-01-22] MEDS ORDERED: MoRPHine SULFATE 2 MG/ML CARP IV PRN (07:49)
[2021-01-22] MEDS ORDERED: NALBUPHINE HCL INJ 10 MG/ML AMP IV PRN (07:49)
[2021-01-22] MEDS ORDERED: NALOXONE HCL 1 MG in SODIUM CHLORIDE 0.9% 1000ML 1,000 ML IV PRN (07:49)
[2021-01-22] MEDS ORDERED: ONDANSETRON INJ 2 MG/ML 2 ML VIAL IV PRN (07:49)
[2021-01-22] MEDS ORDERED: NALOXONE HCL 0.08 MG in SYRINGE 1.8 ML IV PRN (07:49)
[2021-01-22] MEDS ORDERED: ePHEDrine sulfate 50 MG/ML AMP IV PRN (07:49)
[2021-01-22] MEDS ORDERED: MoRPHine SULFATE PF 1 MG/ML 10 ML AMP/VIAL INT SPINAL ONE (07:49)
[2021-01-22] MEDS ORDERED: NALOXONE HCL 0.4 MG/1 ML VIAL/CARP IV PRN (07:49)
[2021-01-22] MEDS ORDERED: LACTATED RINGER'S 500 ML IV PRN (07:49)
[2021-01-22] MEDS ORDERED: diphenhydrAMINE 50 MG/ML VIAL IV PRN (07:49)
[2021-01-22] MEDS ORDERED: DC INTRASPINAL MORPHINE SCH (08:00)
[2021-01-22] MEDS ORDERED: SODIUM CHLORIDE 0.9% 1000ML 1,000 ML IV SCH (08:00)
[2021-01-22] MEDS ORDERED: NO NARCOTICS OR SEDATIVES SCH (08:00)
--- NOTE | 2021-01-22 08:21 | Operative Report ---
PG Post Operative Report Pre & Post Diagnosis Operation Date: 01/22/21 06:15 Pre-Op Diagnosis: Failure to descend Post-Op Diagnosis: Same, plus difficult extraction I identified the patient and participated in the time-out.: Yes Procedure Operation Date: 01/22/21 06:15 Actual Procedures Primary with T-incision and R cervical extension Surgeon Rosalva Willard MD Warp Dyeing Vat Tender MAXIM Bruce - and beginning with uterine repair also MD Rudy Estimated Blood Loss 600 Findings Consistent with Post-Op Diagnosis Specimens Cord blood, placenta Drains Lenz, with urine initially pink likely 2/2 long second stage of labor and appearing clearer at end of case. Anesthesia Type Spinal Complications none Disposition Accompanied Patient To Recovery: Yes Disposition: L&D Indications Failure to descend OP presentation Description of Procedure Patient was brought to the operating room and placed on the table supine with a leftwards tilt. She was prepped and draped in standard sterile manner, with a full 3 minute wait for drying of skin prep. A hard time out was taken before proceeding. Anesthesia was tested and found to be adequate. A Pfannensteil incision was created in the usual manner and carried down sharply to the fascia, which was nicked and extended laterally using Cordon scissors. The anterior edge of the fascia was grasped with Lamar clamps and the fascia was sharply and bluntly dissected off the underlying rectus muscles. This process was repeated upon the inferior edge of the fascia as well. The midline anterior fascia was grasped with a Lamar to allow retraction. The midline of the rectus was identified and bluntly, thus exposing the peritoneum, which was entered and then extended bluntly. The anterior uterus was examined, the ZEENAT was found to be well developed, and the head was palpated as being low. I asked the divisional merchandising manager to undo the patient's lap strap and frog-leg position her, and prepare a sterile gloved hand to provide elevation of the head if needed. I then created a bladder flap in the usual manner with pickups and Metzenbaum scissors, replacing the bladder retractor behind it. The transverse hysterotomy was then created, with final entry to the uterus done in a blunt manner with surgeon's finger. This was extended bluntly. My hand was introduced to the uterus and used to attempt elevation of the head. Suction easily broke and the head began to elevate, but unfortunately the uterus then began to contract firmly, and elevation sufficient to allow delivery was not possible. T-extension to the uterus was then performed using bandage scissors, which caused the contraction to release, and allowed elevation of the head to the hysterotomy and delivery to be completed. The was vigorous upon delivery. The cord was doubly clamped, cut by the surgeon, and the was carried to the warmer for peds attention. The uterus was exteriorized and the placenta was gently removed, after which the uterus was cleared of clot and debris using a dry lap sponge. The angles of the hysterotomy were marked with Allis clamps, and an extension from the R angle towards the uterus was also identified and clamped. Repair of the uterus began with closure of the T- extension using 0-vicryl suture in a two layer manner. The hysterotomy's transverse portion was then closed in two layers of 0-vicryl, including the R cervical extension, using the second layer to re-peritonealize the lower uterine segment. Uterine tone was good. The uterus was gently replaced in the abdomen, gutters were cleared of clot and debris using a damp lap sponge, and the uterine repair was examined and found to be hemostatic. The rectus were allowed to reapproximate naturally, and the fascia was closed using 1-vicryl in a running nonlocked manner. The fascial closure was examined and found to be without defect. The subcutaneous tissue was irrigated copiously, then reapproximated using 3-0 chromic at the level of Norma's fascia. The skin was then closed using 4-0 monocryl in a subcuticular manner, and a dermabond dressing was applied. The lenz was noted to be draining urine that had markedly cleared (was pink at start of case, more yellow by the end, likely c/w some urethral trauma from prolonged second stage of labor and improving after delivery was effected). The patient was transferred in stable condition to her recovery room. She was informed postoperatively of the T-incision and its implications for future delivery. I attest to the content of the Intraoperative Record and any orders documented therein. Any exceptions are noted below.
--- NOTE | 2021-01-22 08:40 | Anesthesia Procedure Note ---
Date of Service January 22, 2021 Anesthesia Post Epidural Note Vital Signs Vital Signs: Temp Pulse Resp BP Pulse Ox 37.2 C 125 H 18 124/61 99 01/22/21 04:00 01/22/21 08:38 01/22/21 01:00 01/22/21 08:38 01/22/21 08:38 Notes Mental Status: alert / awake / arousable and participated in evaluation Patient Amnestic to Procedure: No Nausea / Vomiting: adequately controlled Pain: adequately controlled Airway Patency, RR, SpO2: stable & adequate BP & HR: stable & adequate Hydration State: stable & adequate Neuraxial Anesthesia: was administered and sensory block is resolving Anesthetic Complications: no major complications apparent and Pt Satisfied with anesthetic care Epidural: Removed without complications and With tip intact
--- NOTE | 2021-01-22 08:40 | Anesthesiology Progress Note ---
Date of Service January 22, 2021 Anesthesia Post Procedure Vital Signs Vital Signs: Temp Pulse Resp BP Pulse Ox 01/22/21 08:38 125 H 124/61 99 01/22/21 08:33 124 H 98 01/22/21 08:28 132 H 123/58 L 99 01/22/21 06:59 139 H 96 01/22/21 06:54 140 H 97 01/22/21 06:50 144 H 125/68 01/22/21 06:49 135 H 95 01/22/21 06:44 148 H 97 01/22/21 06:39 123 H 98 01/22/21 06:36 130 H 119/65 01/22/21 06:34 130 H 97 01/22/21 06:29 132 H 96 01/22/21 06:24 135 H 96 01/22/21 06:21 127 H 129/63 01/22/21 06:19 135 H 96 01/22/21 06:14 153 H 97 01/22/21 06:09 139 H 96 01/22/21 06:05 144 H 128/61 01/22/21 06:04 140 H 95 01/22/21 05:59 135 H 95 01/22/21 05:55 129 H 88 L 01/22/21 05:54 120 H 96 01/22/21 05:51 126 H 132/60 01/22/21 05:49 134 H 93 01/22/21 05:44 151 H 97 01/22/21 05:39 135 H 83 L 01/22/21 05:35 123 H 134/63 01/22/21 05:34 130 H 94 01/22/21 05:29 127 H 95 01/22/21 05:24 131 H 97 01/22/21 05:21 127 H 141/62 H 01/22/21 05:18 133 H 96 01/22/21 05:14 138 H 84 L 01/22/21 05:13 132 H 95 01/22/21 05:09 151 H 87 L 01/22/21 05:08 134 H 96 01/22/21 05:05 131 H 122/57 L 01/22/21 05:03 127 H 96 01/22/21 04:58 142 H 96 01/22/21 04:53 135 H 97 01/22/21 04:50 148 H 123/76 01/22/21 04:48 158 H 97 01/22/21 04:43 125 H 97 01/22/21 04:39 139 H 85 L 01/22/21 04:38 130 H 96 01/22/21 04:35 121 H 131/63 01/22/21 04:34 146 H 89 L 01/22/21 04:33 126 H 96 01/22/21 04:29 138 H 84 L 01/22/21 04:28 133 H 95 01/22/21 04:23 129 H 96 01/22/21 04:18 127 H 96 01/22/21 04:13 134 H 98 01/22/21 04:08 134 H 97 01/22/21 04:05 130 H 128/60 01/22/21 04:04 146 H 89 L 01/22/21 04:03 137 H 90 01/22/21 04:00 37.2 C 01/22/21 03:58 127 H 95 01/22/21 03:51 130 H 130/58 L 01/22/21 03:41 139 H 85 L 01/22/21 03:36 132 H 128/61 96 01/22/21 03:35 127 H 80 L 01/22/21 03:31 125 H 96 01/22/21 03:30 136 H 79 L 01/22/21 03:26 128 H 96 01/22/21 03:21 127 H 122/59 L 96 01/22/21 03:16 129 H 96 01/22/21 03:11 135 H 98 01/22/21 03:06 125 H 131/60 97 01/22/21 03:01 128 H 96 01/22/21 02:56 129 H 96 01/22/21 02:51 135 H 96 01/22/21 02:50 133 H 130/63 01/22/21 02:46 130 H 99 01/22/21 02:41 136 H 97 01/22/21 02:36 134 H 133/82 97 01/22/21 02:31 132 H 98 01/22/21 02:26 138 H 96 01/22/21 02:21 139 H 132/76 98 01/22/21 02:16 132 H 96 01/22/21 02:14 130 H 88 L 01/22/21 02:11 123 H 96 01/22/21 02:06 126 H 129/72 98 01/22/21 02:01 125 H 95 01/22/21 01:56 125 H 97 01/22/21 01:51 125 H 97 01/22/21 01:50 130 H 133/63 01/22/21 01:46 131 H 97 01/22/21 01:41 129 H 96 01/22/21 01:36 136 H 97 01/22/21 01:35 127 H 127/65 01/22/21 01:31 130 H 95 01/22/21 01:26 133 H 97 01/22/21 01:21 134 H 140/76 98 01/22/21 01:20 36.9 C 01/22/21 01:16 134 H 98 01/22/21 01:11 133 H 97 01/22/21 01:06 124 H 96 01/22/21 01:05 120 H 132/71 01/22/21 01:01 118 H 95 01/22/21 01:00 36.8 C 18 01/22/21 00:56 126 H 97 01/22/21 00:51 122 H 132/68 97 01/22/21 00:46 121 H 95 01/22/21 00:41 125 H 96 01/22/21 00:36 120 H 131/72 95 01/22/21 00:31 131 H 98 01/22/21 00:26 130 H 97 01/22/21 00:21 128 H 133/70 95 01/22/21 00:16 128 H 97 01/22/21 00:11 131 H 96 01/22/21 00:06 132 H 127/78 98 01/22/21 00:01 122 H 97 01/21/21 23:56 123 H 96 01/21/21 23:51 127 H 97 01/21/21 23:50 125 H 123/70 01/21/21 23:46 122 H 95 01/21/21 23:41 130 H 95 01/21/21 23:36 124 H 136/68 96 01/21/21 23:31 131 H 95 01/21/21 23:26 129 H 95 01/21/21 23:21 133 H 130/71 95 01/21/21 23:16 127 H 96 01/21/21 23:11 126 H 97 01/21/21 23:06 134 H 97 07/14/21 23:05 134 H 124/58 L 01/21/21 23:01 142 H 97 01/21/21 23:00 36.9 C 18 01/21/21 22:56 144 H 97 01/21/21 22:51 152 H 98 01/21/21 22:50 157 H 125/57 L 01/21/21 22:46 144 H 98 01/21/21 22:41 130 H 97 01/21/21 22:36 127 H 97 01/21/21 22:35 130 H 122/56 L 01/21/21 22:31 121 H 97 01/21/21 22:30 18 01/21/21 22:26 130 H 97 01/21/21 22:21 130 H 133/80 96 01/21/21 22:16 125 H 97 01/21/21 22:11 125 H 97 01/21/21 22:06 125 H 134/80 96 01/21/21 22:01 132 H 97 01/21/21 22:00 18 01/21/21 21:56 132 H 97 01/21/21 21:51 121 H 98 01/21/21 21:50 131 H 139/87 01/21/21 21:46 131 H 98 01/21/21 21:41 124 H 98 01/21/21 21:36 128 H 128/81 98 01/21/21 21:31 125 H 99 01/21/21 21:26 136 H 97 01/21/21 21:21 120 H 134/79 97 01/21/21 21:16 118 H 96 01/21/21 21:15 36.9 C 01/21/21 21:11 115 H 96 01/21/21 21:06 122 H 97 01/21/21 21:05 125 H 119/75 01/21/21 21:01 126 H 97 01/21/21 21:00 18 01/21/21 20:56 121 H 96 01/21/21 20:51 112 H 96 01/21/21 20:50 122 H 119/69 01/21/21 20:46 117 H 96 01/21/21 20:45 18 01/21/21 20:41 115 H 96 01/21/21 20:36 115 H 98 01/21/21 20:35 121 H 118/75 01/21/21 20:31 121 H 97 01/21/21 20:30 18 01/21/21 20:26 116 H 100 01/21/21 20:22 123 H 124/74 01/21/21 20:21 120 H 99 01/21/21 20:16 112 H 99 01/21/21 20:15 18 01/21/21 20:11 115 H 100 01/21/21 20:06 129 H 100 01/21/21 20:05 122 H 124/72 01/21/21 20:03 126 H 118/75 01/21/21 20:01 130 H 113/70 100 01/21/21 20:00 18 01/21/21 19:59 134 H 104/64 01/21/21 19:57 125 H 103/59 L 01/21/21 19:56 129 H 100 01/21/21 19:55 125 H 127/71 01/21/21 19:53 129 H 105/64 01/21/21 19:51 123 H 104/55 L 01/21/21 19:50 126 H 98 01/21/21 19:49 134 H 103/57 L 01/21/21 19:47 130 H 128/60 01/21/21 19:45 132 H 125/61 99 01/21/21 19:43 130 H 127/73 01/21/21 19:41 126 H 134/69 01/21/21 19:40 126 H 97 01/21/21 19:39 114 H 136/87 01/21/21 19:37 108 H 137/95 01/21/21 19:35 97 H 97 01/21/21 19:30 113 H 97 01/21/21 19:25 105 H 134/92 97 01/21/21 19:20 109 H 100 01/21/21 19:15 102 H 96 01/21/21 19:10 108 H 100 01/21/21 19:05 36.5 C 116 H 18 95 01/21/21 19:00 113 H 95 01/21/21 18:55 96 H 96 01/21/21 18:50 83 97 01/21/21 18:45 97 H 97 01/21/21 18:40 106 H 97 01/21/21 18:35 114 H 96 01/21/21 18:30 111 H 97 01/21/21 18:26 114 H 134/90 01/21/21 18:25 113 H 98 01/21/21 18:20 111 H 97 01/21/21 18:15 115 H 97 01/21/21 18:10 113 H 97 01/21/21 18:05 115 H 97 01/21/21 18:00 111 H 97 01/21/21 17:55 107 H 97 01/21/21 17:50 105 H 97 01/21/21 17:45 97 H 97 01/21/21 17:40 115 H 97 01/21/21 17:24 100 H 131/75 01/21/21 17:00 36.9 C 01/21/21 16:24 100 H 135/92 01/21/21 15:25 96 H 146/86 H 01/21/21 15:01 98 H 139/88 01/21/21 15:00 36.7 C 18 01/21/21 14:25 100 H 133/91 01/21/21 13:25 107 H 139/86 01/21/21 13:06 36.8 C 18 01/21/21 12:25 102 H 131/86 01/21/21 11:24 121 H 152/83 H 01/21/21 11:00 36.9 C 18 01/21/21 10:24 106 H 146/89 H 01/21/21 09:24 106 H 141/94 H Transfer of Care Handoff Completed per policy Notes Mental Status: alert / awake / arousable and participated in evaluation Patient Amnestic to Procedure: Yes Nausea / Vomiting: adequately controlled Pain: adequately controlled and see Notes below Airway Patency, RR, SpO2: stable & adequate BP & HR: stable & adequate Hydration State: stable & adequate Neuraxial Anesthesia: was administered and sensory block is resolving Anesthetic Complications: no major complications apparent and Pt Satisfied with anesthetic care
[2021-01-22] MEDS ORDERED: DIPHTHERIA/TETANUS/PERTUSSIS 0.5 ML SYR/VIAL IM ONE (08:56)
[2021-01-22] MEDS ORDERED: MAGNESIUM HYDROXIDE SUSP 30 ML UDC PO PRN (08:56)
[2021-01-22] MEDS ORDERED: SENNA 8.6 MG TAB PO PRN (08:56)
[2021-01-22] MEDS ORDERED: SUPERCREAM 0.870% 15 GM JAR EXT PRN (08:56)
[2021-01-22] MEDS ORDERED: HYDROCORTISONE ACETATE 25 MG SUPP PR PRN (08:56)
[2021-01-22] MEDS ORDERED: BENZOCAINE 20% AER SPR 82.5 GM CAN EXT PRN (08:56)
[2021-01-22] MEDS ORDERED: PROMETHAZINE HCL 25 MG in SODIUM CHLORIDE 0.9% 50 ML IV PRN (08:56)
[2021-01-22] MEDS: KETOROLAC 30 MG/ML VIAL IV PRN ×2 (08:57→19:27)
[2021-01-22] MEDS: OXYTOCIN 30 UNITS in LACTATED RINGER'S 1,000 ML IV SCH ×2 (11:04→19:12)
[2021-01-22] MEDS: SIMETHICONE 80 MG CHEW PO SCH ×3 (14:05→21:07)
[2021-01-22] MEDS: DOCUSATE SODIUM 100 MG CAP PO SCH (21:07)
[2021-01-23] MEDS: KETOROLAC 30 MG/ML VIAL IV PRN (01:31)
[2021-01-23] MEDS ORDERED: diphenhydrAMINE 50 MG/ML VIAL IV PRN (01:50)
[2021-01-23] MEDS ORDERED: MEPERIDINE HCL 50 MG/ML CARP IV PRN (01:50)
[2021-01-23] MEDS ORDERED: KETOROLAC 30 MG/ML VIAL IV PRN (01:50)
[2021-01-23] MEDS ORDERED: ONDANSETRON INJ 2 MG/ML 2 ML VIAL IV PRN (01:50)
[2021-01-23] MEDS ORDERED: diphenhydrAMINE Capsule 25 MG CAP PO PRN (01:50)
[2021-01-23] MEDS: oxyCODONE/ACETAMINOPHEN 5mg/325mg TAB PO PRN ×4 (04:27→23:38)
[2021-01-23 07:02] LABS: Hematocrit (blood only) 30.2 % (37-47); Mean Corpuscular Hemoglobin 29.2 pg (25-34); Mean Corpuscular Hgb Conc 33.1 g/dL (32-36); Mean Corpuscular Volume 88.3 fL (80-100); Mean Platelet Volume 10.1 fL (7.4-10.4); Platelet Count 151 K/uL (130-400); RDW Coefficient of Variation 15.2 % (11.5-14.5); RDW Standard Deviation 49.2 fL (36.4-46.3); Red Blood Count 3.42 M/uL (4.2-5.4); White Blood Count 16.73 K/uL (4.8-10.8)
--- NOTE | 2021-01-23 07:04 | Obstetrical Progress Note ---
Date of Service <El Pruitt MD - Last Filed: 01/23/21 07:30> January 23, 2021 Assessment & Plan <El Pruitt MD - Last Filed: 01/23/21 07:30> (1) Encounter for care and examination after delivery: Stable -pn control as needed -encourage ambulation -bottle feeding -GBS-, RI, Rh- (rhogam) -labs -Vitals (2) Post term over 40 weeks: (3) Mild preeclampsia: not present at this time (4) Rh negative status during : see above (5) : <Emelina Grant MD, FACOG - Last Filed: 01/23/21 07:34> (1) Encounter for care and examination after delivery: (2) Post term over 40 weeks: (3) Mild preeclampsia: (4) Rh negative status during : (5) : Subjective <El Pruitt MD - Last Filed: 01/23/21 07:30> Post 25 y/o female who is POD #1 following for failure to descend at 40 WGA. She reports feeling well overall this morning. - abdominal cramping & 4/10 pain well managed on analgesics. Voiding +. Tolerating meals overnight and able to ambulate some. + passing gas but no bowel movement. Has some minimal lochia with improvement this morning. Currently bottle feeding. Review of Systems Denies fever, chills, sweats Denies shortness of breath, difficulty breathing, chest pain, palpitations, chest pressure. Denies breast pain. Denies dysuria. Denies headache or changes in vision. Review of Systems All systems reviewed & are unremarkable except as noted in HPI & below Physical Exam <El Pruitt MD - Last Filed: 01/23/21 07:30> General: Alert, oriented. No acute distress. Cardiac: Regular rate and rhythm, no murmurs/rubs/gallops. Respiratory: Clear to auscultation bilaterally a/p, no wheezes/rales/rhonchi. No increased work of breathing. Symmetrical chest rise. No respiratory distress. Abdomen: Soft, nontender, nondistended. Bowel sounds present. Uterus: Uterine fundus firm, palpable cm below umbilicus. Surgical scar clean a nd healing well. Lower Extremities: No lower extremity edema or swelling. No deep calf pain. Kelli's negative bilaterally. Constitutional WD/WN, vitals as above Results & Data ([facility]) <El Pruitt MD - Last Filed: 01/23/21 07:30> Vital Signs (Past 12 Hours) Vital Signs Temp Pulse Resp BP Pulse Ox 01/23/21 03:56 36.8 C 106 H 16 116/73 96 01/23/21 02:00 37.0 C 125 H 16 117/77 97 01/23/21 01:00 18 96 01/23/21 00:00 18 96 01/22/21 23:20 36.8 C 133 H 18 120/70 96 01/22/21 23:00 18 97 01/22/21 22:15 16 94 01/22/21 21:15 16 95 01/22/21 20:15 16 94 01/22/21 19:15 37.3 C 134 H 16 126/77 94 <Emelina Grant MD, FACOG - Last Filed: 01/23/21 07:34> Co-Signing Physician Notes Resident Physician Supervision Note: I interviewed and examined the patient. Discussed with Dr. Pruitt and agree with findings and plan as documented in the note. Any exceptions or clarifications are listed here: Doing very well. Routine pod 1 care. Pain well managed. h/h appropriate for postop. Documented By: Emelina Grant MD, FACOG Resident Activity Tracking <El Pruitt MD - Last Filed: 01/23/21 07:30> Resident Involvement: Resident Care Provided Care Provided: OB Delivery
[2021-01-23 07:23] LABS: Basophils # (auto) 0.01 K/uL (0-0.2); Basophils % (auto) 0.1 %; Eosinophils # (auto) 0.04 K/uL (0-0.5); Eosinophils % (auto) 0.2 %; Immature Granulocytes # (auto) 0.08 K/uL (0.00-0.02); Immature Granulocytes % (auto) 0.5 %; Lymphocytes % (auto) 5.4 %; Monocytes % (auto) 3.6 %; Neutrophils % (auto) 90.2 %
[2021-01-23] MEDS: PRENATAL VITAMIN 1 TAB PO SCH (08:41)
[2021-01-23] MEDS: FERROUS SULFATE 325 MG TAB PO SCH (08:41)
[2021-01-23] MEDS: SIMETHICONE 80 MG CHEW PO SCH ×4 (08:41→19:32)
[2021-01-23] MEDS: IBUPROFEN 600 MG TAB PO PRN ×3 (08:42→23:38)
[2021-01-23] MEDS: DOCUSATE SODIUM 100 MG CAP PO SCH ×2 (08:42→19:32)
[2021-01-23] MEDS ORDERED: bisacodyL 5 MG TABEC PO SCH (20:00)
[2021-01-24] MEDS: IBUPROFEN 600 MG TAB PO PRN ×4 (03:39→20:45)
[2021-01-24] MEDS: oxyCODONE/ACETAMINOPHEN 5mg/325mg TAB PO PRN ×4 (03:40→20:44)
[2021-01-24 07:06] LABS: Hematocrit (blood only) 24.6 % (37-47); Hemoglobin 8.3 g/dL (12.0-16.0)
--- NOTE | 2021-01-24 07:07 | Obstetrical Progress Note ---
Date of Service <El Pruitt MD - Last Filed: 01/24/21 07:59> January 24, 2021 Assessment & Plan <El Pruitt MD - Last Filed: 01/24/21 07:59> (1) Encounter for care and examination after delivery: Stable, improving -hgb 8.3 -pain controlled on analgesics -Rh-, RI, GBS- (Rhogam received 01/23) -bottle feeding -d/c discussed with pt, prefers tuesday d/c (2) Post term over 40 weeks: (3) Rh negative status during : Rhogam given 01/23 (4) Supervision of normal first : <Ravin Overton MD - Last Filed: 01/24/21 08:19> (1) Encounter for care and examination after delivery: (2) Post term over 40 weeks: (3) Rh negative status during : (4) Supervision of normal first : Subjective <El Pruitt MD - Last Filed: 01/24/21 07:59> 25 y/o female who is POD #3 following for failure to descend af ter IOL at 40 WGA. She reports feeling well overall this morning. 4/10 pain well managed on analgesics. Voiding +. Tolerating meals overnight and able to ambulate. + passing gas but no bowel movement. Has some persistent lochia with some improvement this morning. Currently bottle feeding. Review of Systems Denies fever, chills, sweats Denies shortness of breath, difficulty breathing, chest pain, palpitations, chest pressure. Denies breast pain. Denies dysuria. Denies headache or changes in vision. Physical Exam <El Pruitt MD - Last Filed: 01/24/21 07:59> General: Alert, oriented. No acute distress. Cardiac: Tachycardic, regular rhythm, no murmurs/rubs/gallops. Respiratory: Clear to auscultation bilaterally a/p, no wheezes/rales/rhonchi. No increased work of breathing. Symmetrical chest rise. No respiratory distress. Abdomen: Soft, nontender, nondistended. Bowel sounds present. Uterus: Uterine fundus firm, palpable 2 cm below umbilicus. Surgical scar clean and healing well. Lower Extremities: No lower extremity edema or swelling. No deep calf pain. Kelli's negative bilaterally. Constitutional WD/WN, vitals as above Cardiovascular Rate/Rhythm: regular rhythm and + tachycardic Results & Data ([facility]) <El Pruitt MD - Last Filed: 01/24/21 07:59> Vital Signs (Past 12 Hours) Vital Signs Temp Pulse Resp BP Pulse Ox 01/23/21 23:03 36.7 C 110 H 16 113/65 97 01/23/21 19:20 36.7 C 132 H 16 126/79 97 <Ravin Overton MD - Last Filed: 01/24/21 08:19> Co-Signing Physician Notes Agree with findings and plan as noted by resident. Routine post care Resident Activity Tracking <El Pruitt MD - Last Filed: 01/24/21 07:59> Resident Involvement: Resident Care Provided Care Provided: OB Delivery
[2021-01-24] MEDS: DOCUSATE SODIUM 100 MG CAP PO SCH ×2 (07:31→20:44)
[2021-01-24] MEDS: FERROUS SULFATE 325 MG TAB PO SCH (07:31)
[2021-01-24] MEDS: SIMETHICONE 80 MG CHEW PO SCH ×4 (07:31→20:44)
[2021-01-24] MEDS: PRENATAL VITAMIN 1 TAB PO SCH (07:31)
[2021-01-24] MEDS ORDERED: bisacodyL 10 MG SUPP PR PRN (08:27)
[2021-01-25] MEDS: oxyCODONE/ACETAMINOPHEN 5mg/325mg TAB PO PRN ×2 (01:09→07:32)
[2021-01-25] MEDS: IBUPROFEN 600 MG TAB PO PRN ×2 (01:09→07:31)
[2021-01-25] MEDS: DOCUSATE SODIUM 100 MG CAP PO SCH (07:31)
[2021-01-25] MEDS: FERROUS SULFATE 325 MG TAB PO SCH (07:31)
[2021-01-25] MEDS: PRENATAL VITAMIN 1 TAB PO SCH (07:31)
[2021-01-25] MEDS: SIMETHICONE 80 MG CHEW PO SCH (07:31)
--- NOTE | 2021-01-25 08:29 | Obstetrical Progress Note ---
Date of Service January 25, 2021 Assessment & Plan (1) Encounter for care and examination after delivery: satisfactory course ready for discharge today scripts for percocet and motrin sent to pharmacy follow up in 6 weeks or PRN Subjective Ambulation: ambulating normally Voiding: no voiding problems Passing Gas:: Yes Diet Tolerance:: regular diet Lochia:: Small Feeding Type:: bottle feeding pain well controlled on oral pain meds Review of Systems All systems reviewed & are unremarkable except as noted in HPI & below Physical Exam Constitutional WD/WN, vitals as above Gastrointestinal (Abdomen) normal bowel sounds, soft, nontender, no hepatosplenomegaly Inspection/Auscultation: + abdominal surgical incision (dry, intact with no erythema noted) Psychiatric A+Ox3, euthymic affect Genitourinary OB Exam Abdomen: + fundal height Fundus: + firm and + relation to umbilicus (3 below U) Results & Data ([facility]) Vital Signs (Past 12 Hours) Vital Signs Temp Pulse Resp BP Pulse Ox 01/25/21 07:30 97.9 F 97 H 20 134/83 96 01/24/21 23:01 97.5 F L 97 H 16 132/83 99 01/24/21 20:40 97.5 F L 104 H 16 134/88 98
--- NOTE | 2021-01-27 07:57 | Discharge Summary ---
Date of Service January 27, 2021 Admission HPI Per Admitting Provider 25 y/o female currently at 40.2 WGA with an MITCH 01/17/21 as determined by LMP who is here for IOL. - contractions; + movement; - fluid loss; - bloody show. ROS + headache Had regular appointments with OB. Labs: (Today) Blood type: AB negative Antibody screen: negative H.3 Hct: 35.9 WBC: 10.53 Plt: 171 Rubella: immune VDRL/RPR: nonreactive Gonorrhea: negative Chlamydia: negative HIV: negative HbSAg: negative GBS: negative Other screens: CF: declined SMA: declined Discharge Data Consultations 01/22/21 06:18 Consult Anesthesiology Stat Procedures Performed Operation Date: 01/22/21 06:15 Actual Procedures Section with live male child born at 0740 Done for Failure to Descend, OP presentation Coding Level of Care Code None
== END 2021-01-25 10:40 | disposition home or self-care (01) | DRG 788 ==
LOC: 4S1 07:25 → 4S2 01-22 12:27